=== PATIENT | female | born 1985 | race Caucasian/White ===

== ENCOUNTER 2016-12-26 11:58 | Outpatient (CLI) | payer OTHER | END 2016-12-26 23:00 | LOC: LAB SRH 11:58 | DX: F41.8 Other specified anxiety disorders (principal); R53.83 Other fatigue | CPT/HCPCS: 90074; 95059 ==

== ENCOUNTER 2017-01-02 10:59 | Outpatient (CLI) | payer OTHER ==
--- NOTE | 2017-01-02 12:23 | DIAGNOSTIC IMAGING REPORT ---
PROCEDURE: MG BILATERAL DIAGNOSTIC W/CAD INDICATION: Bilateral non hemorrhagic breast discharge. TECHNIQUE: CC, MLO, and true lateral and MLO digital views of each breast. In addition, high-resolution bilateral breast ultrasound was performed (18 mHz). COMPARISON: None. FINDINGS: MAMMOGRAM: Computer-aided detection applied. Mildly dense parenchymal pattern. No evidence of mass or suspicious calcification. BREAST ULTRASOUND: Right: Minimal retroareolar ductal ectasia. No evidence of mass or cyst. Left: Minimal retroareolar ductal ectasia. No evidence of mass or cyst. IMPRESSION: 1. Negative mammogram and negative bilateral breast ultrasound. 2. Findings discussed with the patient. RESULT CODE: 1- Negative. A. A negative report should not delay biopsy if a dominant or clinically suspicious mass is present. 10-15% of cancers are not identified by x-ray. B. A negative report may reinforce clinical impression. C. Adenosis and dense breasts may obscure an underlying neoplasm. D. False positive reports average 6-10%. E.. A yearly screening mammogram is recommended. A reminder letter will be scheduled.
== END 2017-01-02 23:00 | disposition home or self-care (01) ==
LOC: US SRH 10:59
DX: N64.52 Nipple discharge (principal)